=== PATIENT | female | born 1950 | race Caucasian/White ===

== ENCOUNTER 2016-11-17 11:48 | Day surgery (SDC) | payer BC ==
[2016-11-15 09:47] VITALS: BMI 31.9
[~2016-11-17 11:48] MED LIST: SODIUM CHLORIDE 0.9% 1,000 ML IV SCH; ceFAZolin 2 GM in SODIUM CHLORIDE 0.9% 100 ML IVPB ONE
[2016-11-17] MEDS ORDERED: SODIUM CHLORIDE 0.9% 1,000 ML IV ONE (12:30)
[2016-11-17 12:37] LABS: Basophils % (A) 1 %; CH 28.4; CHCM 33.5; Eosinophils # (A) 0.1 k/uL (0-0.7); Eosinophils % (A) 1 %; HCT 41.4 % (34.0-46.0); HDW 2.47; HGB 13.7 gm/dL (11.4-16.0); Luc # (Auto) 0.16; Luc % (Auto) 3; Lymphocytes # (A) 1.3 k/uL (1.0-4.8); Lymphocytes % (A) 23 %; MCH 28.2 pg (25.0-35.0); MCHC 33.1 g/dL (31.0-37.0); MCV 85.1 fL (80.0-100.0); Mean Platelet Volume 7.2; Monocytes # (A) 0.3 k/uL (0-1.0); Monocytes % (A) 6 %; Neutrophils # (A) 3.7 k/uL (1.3-7.7); Neutrophils % (A) 66 %; RBC 4.86 m/uL (3.80-5.40); RDW 13.7 % (11.5-15.5); WBC 5.6 k/uL (3.8-10.6); WBC (Perox) 5.74
[2016-11-17] MEDS ORDERED: ALPRAZolam 0.25 MG TAB ONE (13:55)
[2016-11-17] MEDS ORDERED: MIDAZOLAM 2 MG/2 ML VIAL ONE (15:42)
[2016-11-17] MEDS ORDERED: MIDAZOLAM 2 MG/2 ML VIAL IV ONE (16:07)
[2016-11-17] MEDS ORDERED: LIDOCAINE 2% INJ 20 MG/ML SQ ONE ×2 (16:08)
--- NOTE | 2016-11-17 16:21 | P.PCN ---
Preoperative Diagnosis: Loop monitor implant Primary physicians: Dr. Cherry Carpet Jack: Dr. Jolly Indication: Atrial fibrillation evaluation and management Patient was brought to the EP lab in a fasting state. Written informed consent was obtained prior to the procedure. The left pectoral area was prepped and draped per protocol. Intravenous antibiotic was administered preoperatively. A subcutaneous Loop monitor was implanted successfully and the wound was closed per protocol. The device was programmed to detect significant kevin- arrhythmic and tachy-arrhythmic events, per protocol. Device and programming details: A. fib detection protocol Disposition: same day
[2016-11-17 16:30] VITALS: RESP 12
[2016-11-17 17:59] VITALS: TEMP 98
[2016-11-17 18:00] VITALS: BP 116/71; PULSE 64
== END 2016-11-17 17:35 | disposition home or self-care (01) ==
LOC: CATHEP 11:48
PROVIDERS: ATTEND Internal Medicine Clinical Cardiac Electrophysiology
DX: I48.0 Paroxysmal atrial fibrillation (principal); E78.5 Hyperlipidemia, unspecified; I11.9 Hypertensive heart disease without heart failure; Z79.82 Long term (current) use of aspirin; Z79.899 Other long term (current) drug therapy
CPT/HCPCS: 33282; 85025; C1764; J2001; J2250; J0690

== ENCOUNTER → 2016-12-02 | Outpatient (CLI) | payer BC ==
--- NOTE | 2016-12-05 07:07 | MM ---
Reason for exam: screening (asymptomatic). Last mammogram was performed 1 year ago. History: Patient is postmenopausal. Benign stereotactic core biopsy of the left breast, November 17, 2000. Benign core biopsy of the left breast. Physical Findings: A clinical breast exam by your physician is recommended on an annual basis and results should be correlated with mammographic findings. MG Screening Mammo w CAD Bilateral CC and MLO view(s) were taken. Prior study comparison: December 01, 2015, bilateral MG screening mammo w CAD. September 19, 2014, bilateral MG screening mammo w CAD. The breast tissue is heterogeneously dense. This may lower the sensitivity of mammography. Finding: There are typically benign round calcifications. There is no discrete abnormality. No significant changes in finding since December 01, 2015 and September 19, 2014. ASSESSMENT: Benign, BI-RAD 2 RECOMMENDATION: Routine screening mammogram of both breasts in 1 year.
== END | disposition home or self-care (01) ==
LOC: RADMAMWWP 09:56
PROVIDERS: ATTEND Family Medicine
DX: Z12.31 Encounter for screening mammogram for malignant neoplasm of breast (principal)

== ENCOUNTER → 2017-12-04 | Outpatient (CLI) | payer MEDICARE ==
--- NOTE | 2017-12-04 10:53 | US ---
EXAMINATION TYPE: US thyroid st tissue head/neck DATE OF EXAM: 12/04/2017 COMPARISON: 2016 CLINICAL HISTORY: E04.2 MULTI NODULAR GOITER. GLAND SIZE: Right Lobe: 3.4 x 1.3 x 1.7 cm Overall Parenchyma: heterogenous Left Lobe: 4.3 x 1.4 x 1.5 cm Overall Parenchyma: heterogeneous Isthmus Thickness: 0.3 cm NODULES RIGHT: # of nodules measured on right: 1 1. 0.4 X 0.3 x 0.5 cm echogenic nodule at the lower pole with well-defined margins; . This nodule is wider than tall and shows intranodular vascularity. Prior size: 0.4 x 0.4 x 0.2 cm LEFT: # of nodules measured on left: 3 1. 0.9 X 0.9 x 0.9 cm echogenic solid nodule at the lower pole with well-defined margins; . This n odule is wider than tall and shows intranodular vascularity. Prior size: 0.9 x 0.7 x 0.6 cm 2. 0.6 X 0.3 x 0.5 cm solid nodule at the mid pole with well-defined margins; . This nodule is wide r than tall and shows intranodular vascularity. Prior size: 0.5 x 0.5 x 0.3 cm 3. 1.5 X 1.0 x 0.8 cm mixed nodule at the lower/medial pole with well-defined margins; . This nodul e is wider than tall and shows intranodular vascularity. Prior size: no prior 4. Prior trans inferior to thyroid non specific 0.5 x 0.4 not seen well long axis prior numbers 0.5 x 0.4 x 0.4 cm ISTHMUS: # of nodules measured in the isthmus: 0 . Bilateral neck scanned, no evidence of lymphadenopathy. IMPRESSION: Stable thyroid heterogeneity and nodularity. Correlate clinically.
--- NOTE | 2017-12-05 09:13 | MM ---
Reason for exam: screening (asymptomatic). Last mammogram was performed 1 year ago. History: Patient is postmenopausal. Benign stereotactic core biopsy of the left breast, November 17, 2000. Benign core biopsy of the left breast. Physical Findings: A clinical breast exam by your physician is recommended on an annual basis and results should be correlated with mammographic findings. MG Screening Mammo w CAD Bilateral CC and MLO view(s) were taken. Prior study comparison: December 02, 2016, bilateral MG screening mammo w CAD. December 01, 2015, bilateral MG screening mammo w CAD. There are scattered fibroglandular densities. Stable benign calcifications. There is no discrete abnormality. No significant changes when compared with prior studies. ASSESSMENT: Benign, BI-RAD 2 RECOMMENDATION: Routine screening mammogram of both breasts in 1 year.
== END | disposition home or self-care (01) ==
LOC: RADMAMWWP 09:50
PROVIDERS: ATTEND Family Medicine
DX: Z12.31 Encounter for screening mammogram for malignant neoplasm of breast (principal); E04.2 Nontoxic multinodular goiter
CPT/HCPCS: 76536; 77067

== ENCOUNTER → 2020-05-27 | Outpatient (CLI) | payer MEDICARE ==
--- NOTE | 2020-05-27 15:42 | US ---
EXAMINATION TYPE: US thyroid st tissue head/neck DATE OF EXAM: 05/27/2020 COMPARISON: 05/13/2019 CLINICAL HISTORY: E04.2 Thyroid nodule. GLAND SIZE: Right Lobe: 3.9 x 1.2 x 1.5 cm Overall Parenchyma: heterogenous Left Lobe: 4.5 x 1.4 x 1.6 cm Overall Parenchyma: heterogeneous Isthmus Thickness: 0.2 cm NODULES RIGHT: # of nodules measured on right: 0 previous subcentimeter nodule not noted on today's exam LEFT: # of nodules measured on left: 3 1. 0.9 x 0.8 x0.8 cm hypoechoic solid nodule at the lower pole with well- defined margins. This nodul e is wider than tall and shows no intranodular vascularity. Prior size: 0.9 x 0.8 x 0.6 cm 2. 0.7 x 0.5 x 0.6 cm hypoechoic mixed nodule at the medial lower pole with well-defined margins. Th is nodule is wider than tall and shows no intranodular vascularity. Prior size: 1.5 x 0.8 x 0.5 cm 3. 0. 7 x 0.4 x 0.6cm hypoechoic mixed nodule at the mid upper pole with well-defined margins. This n odule is wider than tall and shows no intranodular vascularity. Prior size: 0.7 x 0.4 x 0.3 cm ISTHMUS: # of nodules measured in the isthmus: 0 Bilateral neck scanned, no evidence of lymphadenopathy. IMPRESSION: Nonspecific thyroid nodularity. The need to biopsy should be made on a clinical basis.
== END | disposition home or self-care (01) ==
LOC: RADUSWWP 14:52
PROVIDERS: ATTEND Family Medicine
DX: E04.2 Nontoxic multinodular goiter (principal)
CPT/HCPCS: 76536

== ENCOUNTER → 2020-08-25 | Outpatient (CLI) | payer MEDICARE ==
[2020-08-25 11:46] LABS: Basophils # (A) 0.1 k/uL (0-0.2); Basophils % (A) 1 %; Eosinophils # (A) 0.1 k/uL (0-0.7); Eosinophils % (A) 3 %; HCT 43.4 % (34.0-46.0); Lymphocytes # (A) 1.5 k/uL (1.0-4.8); Lymphocytes % (A) 31 %; MCH 28.1 pg (25.0-35.0); MCHC 32.2 g/dL (31.0-37.0); MCV 87.5 fL (80.0-100.0); Mean Platelet Volume 7.8; Monocytes # (A) 0.4 k/uL (0-1.0); Monocytes % (A) 7 %; Neutrophils # (A) 2.7 k/uL (1.3-7.7); Neutrophils % (A) 56 %; Platelet Count 311 k/uL (150-450); RBC 4.96 m/uL (3.80-5.40); RDW 13.9 % (11.5-15.5); WBC 4.9 k/uL (3.8-10.6)
[2020-08-25 11:56] LABS: African American GFR (CKD) >90 (>60 ml/min/1.73 sqM); Blood Urea Nitrogen 12 mg/dL (7-17); Magnesium 2.1 mg/dL (1.6-2.3); Non-African American GFR(CKD) >90 (>60 ml/min/1.73 sqM)
== END | disposition home or self-care (01) ==
LOC: LABPAT 10:11
PROVIDERS: ATTEND Internal Medicine Clinical Cardiac Electrophysiology
DX: Z01.818 Encounter for other preprocedural examination (principal)
CPT/HCPCS: 36415; 82565; 83735; 84520; 85025

== ENCOUNTER 2020-09-01 06:27 | Day surgery (SDC) | payer MEDICARE ==
[2020-08-27 12:13] VITALS: BMI 29.9
[~2020-09-01 06:27] MED LIST changes: -ceFAZolin 2 GM in SODIUM CHLORIDE 0.9% 100 ML IVPB ONE
[2020-09-01 06:53] VITALS: TEMP 97.8
[2020-09-01] MEDS ORDERED: SODIUM CHLORIDE 0.9% 500 ML 500 ML IV ONE (06:53)
[2020-09-01] MEDS ORDERED: LIDOCAINE 1% INJ 10MG/ML (20 ML MDV) ONE (07:28)
[2020-09-01] MEDS ORDERED: MIDAZOLAM 2 MG/2 ML VIAL IV ONE ×2 (07:37)
[2020-09-01] MEDS ORDERED: fentaNYL (PF) 50 MCG/ML 2 ML AMP ONE (07:40)
[2020-09-01] MEDS ORDERED: LIDOCAINE 1% INJ 10MG/ML (20 ML MDV) SQ ONE (07:40)
[2020-09-01] MEDS ORDERED: fentaNYL (PF) 50 MCG/ML 2 ML AMP IV ONE (07:41)
--- NOTE | 2020-09-01 07:53 | P.EPPROC ---
- EP Procedure Note Electrophysiology Procedure Note: Procedure: Loop explant under sedation and local anesthesia. Diagnosis: Loop monitor at [facility] Patient was brought to the EP lab in a fasting state. Written informed consent was obtained prior to the procedure. The subcutaneous device was successfully explanted under local anesthesia. Preoperative antibiotics were administered. The wound was closed in layers and dressed per protocol. Result: Successful loop monitor explantation. Patient underwent EP procedure under conscious sedation/moderate sedation, monitoring of the level of consciousness and physiologic parameters including but not limited to vital signs and oxygenation. Patient tolerated the procedure well without any acute complications. Start time: 740 Stop time: 424
[2020-09-01 09:04] VITALS: BP 145/85; RESP 18
[2020-09-01 09:08] VITALS: PULSE 73
== END 2020-09-01 09:00 | disposition home or self-care (01) ==
LOC: CATHEP 06:27
PROVIDERS: ATTEND Internal Medicine Clinical Cardiac Electrophysiology
DX: Z45.09 Encounter for adjustment and management of other cardiac device (principal); R42 Dizziness and giddiness; I11.9 Hypertensive heart disease without heart failure; E78.5 Hyperlipidemia, unspecified; I95.9 Hypotension, unspecified; I48.0 Paroxysmal atrial fibrillation; I10 Essential (primary) hypertension; Z79.1 Long term (current) use of non-steroidal anti-inflammatories (NSAID); Z79.899 Other long term (current) drug therapy; Z91.09 Other allergy status, other than to drugs and biological substances
CPT/HCPCS: 33286; J2250; J0690; J2001; J3010

== ENCOUNTER → 2021-07-22 | Outpatient (CLI) | payer MEDICARE ==
--- NOTE | 2021-07-22 15:40 | US ---
EXAMINATION TYPE: US thyroid st tissue head/neck DATE OF EXAM: 07/22/2021 COMPARISON: 05/27/2020 CLINICAL HISTORY: 71-year-old female E04.2 Nontoxic multinodular goiter. Technique: Multiple sonographic images of the thyroid gland are obtained. FINDINGS: GLAND SIZE: Right Lobe: 4.5 x 1.6 x 1.3 cm Overall Parenchyma: heterogenous Left Lobe: 4.4 x 1.6 x 1.6 cm Overall Parenchyma: heterogeneous Isthmus Thickness: 0.3 cm NODULES RIGHT: # of nodules measured on right: 0 LEFT: # of nodules measured on left: 2 1. 0.7 X 0.4 x 0.7 cm, upper, solid or almost completely solid, hypoechoic nodule, which is wider t abel tall, with smooth margins, without echogenic foci. Prior size: 0.7 x 0.4 x 0.6 cm 2. 0.9 X 0.8 x 0.7 cm, lower, solid or almost completely solid, hypoechoic nodule, which is wider than tall, with smooth margins, without echogenic foci. Prior size: 0.9 x 0.8 x 0.8 cm Bilateral neck scanned, no evidence of lymphadenopathy. [employer] notes: Multiple sub-centimeter nodules left lobe (up to 5) as visualized on prior, larges t two nodules measured, appear unchanged. IMPRESSION: Multiple stable nodules in the left lobe, largest measuring 9 mm.
--- NOTE | 2021-07-26 09:40 | MM ---
Reason for exam: screening (asymptomatic). Last mammogram was performed 2 years and 2 months ago. History: Patient is postmenopausal. Benign stereotactic core biopsy of the left breast, November 17, 2000. Benign core biopsy of the left breast. Physical Findings: A clinical breast exam by your physician is recommended on an annual basis and results should be correlated with mammographic findings. MG 3D Screening Mammo W/Cad Bilateral CC and MLO view(s) were taken. Prior study comparison: May 13, 2019, bilateral MG screening mammo w CAD. December 04, 2017, bilateral MG screening mammo w CAD. There are scattered fibroglandular densities. Previous mammotome biopsy in the left breast. No significant changes when compared with prior studies. ASSESSMENT: Negative, BI-RAD 1 RECOMMENDATION: Routine screening mammogram of both breasts in 1 year.
== END | disposition home or self-care (01) ==
LOC: RADMAMWWP 09:51
PROVIDERS: ATTEND Family Medicine
DX: Z12.31 Encounter for screening mammogram for malignant neoplasm of breast (principal); E04.2 Nontoxic multinodular goiter
CPT/HCPCS: 76536; 77063; 77067

== ENCOUNTER → 2022-08-01 | Outpatient (CLI) | payer MEDICARE ==
--- NOTE | 2022-08-01 19:26 | BD ---
EXAMINATION TYPE: Axial Bone Density DATE OF EXAM: 08/01/2022 CLINICAL HISTORY: 72 years year old Female. ICD-10 CODE: Z13.820 screening osteoporosis Height: 63 Weight: 189.5 FRAX RISK QUESTIONS: Alcohol (3 or more units per day): NO Family History (Parent hip fracture): YES Glucocorticoids (More than 3mos): NO History of Fracture in Adulthood: FOOT X 3 Secondary Osteoporosis: 1. Type 1 Diabetes: NO 2. Hyperthyroidism: NO 3. Menopause before 45: NO 4. Malnutrition: NO 5. Chronic liver disease: NO Rheumatoid Arthritis: NO Current Tobacco Use: NO RISK FACTORS HISTORY OF: Hip Fracture (Right/Left): NO Spine Fracture: NO History of Wrist Fracture: NO Surgery to Spine/Hip(right/left)/Wrist (right/left): LT HIP REPLACED 2021 Family History of Osteoporosis: YES Active: YES Diet low in dairy products/other sources of calcium: YES Postmenopausal woman: YES Take estrogen and/or progesterone medications: NO Lost more than 2 inches in height since high school: NO Frequent falls: NO Poor Health: NO Hyperparathyroidism: NO Adrenal Insufficiency: NO MEDICATIONS: Prednisone or other steroids: NO Thyroid Medications: NO Osteoporosis Medications: NO Additional Medications: ATORVASTATIN, LOSARTAN, DULOXETINE. ETODOLAC, LANSOPRAZOLE, MULTI VIT. LT HIP REPLACED 2021 EXAM MEASUREMENTS: Bone mineral densitometry was performed using the 3scale System. Bone mineral density as measured about the Lumbar spine is: ----- L1-L4(G/cm2): 1.317 T Score Values are as follows: ----- L1: -0.6 ----- L2: -0.1 ----- L3: 2.0 ----- L4: 2.5 ----- L1-L4: 1.1 Bone mineral density has: INCREASED 0.4 % since study of: 04/12/2016 Bone mineral density about the R hip (g/cm2): 0.889 T Score values are as follows: -----R Neck: -1.1 -----R Total: -0.5 Bone mineral density has: DECREASED 2.9 % since study of: 04/12/2016 FRAX%s: The graph provided illustrates a 20.6 %chance for a major osteoporotic fx and a 3.1% chance f or the hips probability for fx in 10 years time. IMPRESSION: Osteopenia (T Score between -2.5 and -1). There is slightly increased risk of fracture and the patient may be considered for treatment. Re-Screen 2-5 years. NOTE: T-SCORE=SD OF THE YOUNG ADULT MEAN.
== END | disposition home or self-care (01) ==
LOC: RADBDWWP 08:29
PROVIDERS: ATTEND Family Medicine
DX: Z13.820 Encounter for screening for osteoporosis (principal)
CPT/HCPCS: 77080

== ENCOUNTER → 2023-10-23 | Outpatient (CLI) | payer MEDICARE ==
--- NOTE | 2023-10-23 12:03 | US ---
EXAMINATION TYPE: US thyroid st tissue head/neck DATE OF EXAM: 10/23/2023 COMPARISON: US 07/22/2021 CLINICAL INDICATION: Female, 73 years old with history of Z12.31 screening, E07.9 DISORDER OF THYROID , UNSPE; thyroid disease per order GLAND SIZE: Right Lobe: 5.1 x 1.5 x 1.8 cm Overall Parenchyma: heterogenous Left Lobe: 3.9 x 1.5 x 1.5 cm Overall Parenchyma: heterogenous Isthmus Thickness: 0.3 cm NODULES RIGHT: # of nodules measured on right: 0 LEFT: # of nodules measured on left: Multiple TR 4 hypoechoic solid nodules are demonstrated. The largest 3 are measured: 1. 0.7 X 0.8 x 0.5 cm, mid mid, solid or almost completely solid, hypoechoic nodule, which is wider than tall, with smooth margins, without echogenic foci. Prior size: 0.7 x 0.7 x 0.4 cm. *Was labelled superior last exam. 2. 0.9 X 0.8 x 0.8 cm, lower lateral, solid or almost completely solid, hypoechoic nodule, which i s as wide as it is tall, with smooth margins, without echogenic foci. Prior size: Does not correlate with prior. 3. 0.9 X 0.8 x 0.8 cm, lower lateral, solid or almost completely solid, hypoechoic nodule, which i s as wide as it is tall, with smooth margins, without echogenic foci. Prior size: 0.8 x 0.9 x 0.7 cm. Correlates with nodule 2 on prior exam. ISTHMUS: # of nodules measured in the isthmus: 0 Bilateral neck scanned, no evidence of lymphadenopathy. IMPRESSION: Correlate for multinodular goiter. There are multiple TR4 solid nodules in the left lobe with the 3 l argest being measured. For the most part, these are stable measuring up to 9 mm. One 9 mm nodule at t he lower pole laterally was not as well-seen previously. Continue to follow.
--- NOTE | 2023-10-25 11:55 | MM ---
Reason for Exam: Screening (asymptomatic). Last mammogram was performed 2 year(s) and 3 month(s) ago. Patient History: Menarche at age 13. First Full-Term at age 26. Postmenopausal. Benign Core Biopsy on the left side. 11/17/2000, Benign Stereotactic Core Biopsy on the left side. Risk Values: Lor 5 year model risk: 2.6%. NCI Lifetime model risk: 7.0%. Prior Study Comparison: 12/04/2017 Bilateral Screening Mammogram, [facility]. 05/13/2019 Bilateral Screening Mammogram, [facility]. 07/22/2021 Bilateral Screening Mammogram, [facility]. Tissue Density: The breast tissue is heterogeneously dense. This may lower the sensitivity of mammography. Findings: Analyzed By CAD. There is no suspicious group of microcalcifications or new suspicious mass in either breast. Overall Assessment: Benign, BI-RAD 2 Management: Screening Mammogram of both breasts in 1 year. . Patient should continue monthly self-breast exams. A clinical breast exam by your physician is recommended on an annual basis. This exam should not preclude additional follow-up of suspicious palpable abnormalities. Note on Lor scores and lifetime risk: 1. A Lor score greater than 3% is considered moderate risk. If this is the case, consider specialist referral to assess eligibility for a risk reducing agent. 2. If overall lifetime risk for the development of breast cancer is 20% or higher, the patient may qualify for future screening with alternating mammogram and breast MRI. Electronically signed and approved by: Fredy Ott M.D. Radiologis
== END | disposition home or self-care (01) ==
LOC: RADMAMWWP 09:04
PROVIDERS: ATTEND Student in an Organized Health Care Education/Training Program
DX: Z53.9 Procedure and treatment not carried out, unspecified reason (principal)
CPT/HCPCS: 76536; 77063; 77067